=== PATIENT | female | born 1955 | race Caucasian/White ===

== ENCOUNTER 2018-07-12 21:50 | Emergency (ER) | payer BC ==
[2018-07-12] MEDS ORDERED: Sodium Chloride 0.9% 1,000 ML IV ONE (22:32)
--- NOTE | 2018-07-12 22:32 | EDM.PDOC ---
ED HPI GENERAL MEDICAL PROBLEM - General Chief Complaint: Fever Time Seen by Provider: 07/12/18 22:14 Source of Information: Reports: Patient, Significant Other History Limitations: Reports: No Limitations - History of Present Illness INITIAL COMMENTS - FREE TEXT/NARRATIVE: Patient presents with fever, chills and cough. She had a cough and sore throat that started a week ago and is on day 4 of a Z-pack. Today she had a colonoscopy in [place] and on the way home developed the fever and the cough is worse. Two days ago she was with her daughter who has Influenza A. Patient has asthma and easily gets exacerbations as well as pneumonia. Treatments MANAGER ACQUISITION: Reports: Acetaminophen - Related Data Allergies Allergy/AdvReac Type Severity Reaction Status Date / Time No Known Drug Allergies Allergy Cannot Verified 07/12/18 21:51 Remember Home Meds: Home Meds Albuterol/Ipratropium [Combivent Respimat] 07/12/18 [History] Budesonide/Formoterol [Symbicort 160-4.5 MCG] 1 inh INH DAILY 07/12/18 [History] Estrogens, Conjugated [Premarin] 07/12/18 [History] Fluticasone Furoate [Arnuity Ellipta] 1 puff INH ASDIRECTED 07/12/18 [History] Montelukast Sodium 1 tab PO BEDTIME 07/12/18 [History] Omeprazole 07/12/18 [History] Tiotropium [Spiriva HandiHaler] 1 puff INH BID 07/12/18 [History] Past Medical History Respiratory History: Reports: Asthma - Past Surgical History Female Surgical History: Reports: Hysterectomy Musculoskeletal Surgical History: Reports: Arthroscopic Knee, Shoulder Surgery Other Musculoskeletal Surgeries/Procedures:: back surgery Social & Family History - Tobacco Use Smoking Status *Q: Never Smoker - Recreational Drug Use Recreational Drug Use: No ED ROS GENERAL - Review of Systems Review Of Systems: See Below Constitutional: Reports: Fever, Chills. Denies: Decreased Appetite HEENT: Reports: Throat Pain. Denies: Ear Pain Respiratory: Reports: Cough, Sputum. Denies: Shortness of Breath, Wheezing Cardiovascular: Denies: Chest Pain, Lightheadedness, Syncope GI/Abdominal: Denies: Abdominal Pain, Diarrhea, Nausea, Vomiting : Denies: Dysuria, Flank Pain Musculoskeletal: Reports: No Symptoms Skin: Denies: Cyanosis, Jaundice, Mottled, Pallor, Diaphoresis Neurological: Denies: Confusion, Dizziness, Headache Psychiatric: Denies: Agitation, Anxiety ED EXAM, GENERAL - Physical Exam Exam: See Below Exam Limited By: No Limitations General Appearance: Alert, WD/WN, No Apparent Distress Eye Exam: Bilateral Eye: EOMI, Normal Inspection, PERRL Ears: Normal External Exam, Hearing Grossly Normal Nose: Normal Inspection, No Blood Throat/Mouth: Normal Inspection, Normal Lips, Normal Voice, No Airway Compromise Head: Atraumatic, Normocephalic Neck: Normal Inspection, Full Range of Motion Respiratory/Chest: No Respiratory Distress, Lungs Clear, No Accessory Muscle Use , Rhonchi (very mild, occasional). No: Crackles, Rales, Wheezing, Stridor Cardiovascular: No Murmur, Tachycardia (regular) GI/Abdominal: Normal Bowel Sounds, Soft, Non-Tender, No Organomegaly, No Distention, No Abnormal Bruit Back Exam: Normal Inspection, Full Range of Motion. No: CVA Tenderness (L), CVA Tenderness (R) Extremities: Normal Inspection Neurological: Alert, Oriented, Normal Cognition, No Motor/Sensory Deficits Psychiatric: Normal Affect, Normal Mood Skin Exam: Warm, Dry, Intact, No Rash. No: Normal Color (face is flushed) Course - Vital Signs Last Recorded V/S: Last Vital Signs Temp 100.4 F 07/12/18 23:15 Pulse 103 H 07/12/18 23:15 Resp 20 07/12/18 23:15 BP 109/51 L 07/12/18 23:15 Pulse Ox 96 07/12/18 23:15 - Orders/Labs/Meds Orders: Active Orders 24 hr Category Date Time Status Chest 2V [CR] Stat Exams 07/12/18 22:06 Taken Sodium Chloride 0.9% @ 999 MLS/HR (1000ml) Med 07/12/18 22:32 Ordered Sodium Chloride 0.9% [Normal Saline] 1,000 ml IV .BOLUS Medication Orders Sodium Chloride (Normal Saline) 1,000 mls @ 999 mls/hr IV .BOLUS ONE Stop: 07/12/18 23:32 Last Admin: 07/12/18 22:37 Dose: 999 mls/hr Labs: Laboratory Tests 07/12/18 07/12/18 07/12/18 Range/Units 22:09 22:20 22:20 WBC 6.88 (5.00-10.00) 10^3/uL RBC 4.17 (3.80-5.50) 10^6/uL Hgb 13.8 (12.0-16.0) g/dL Hct 39.3 (37.0-47.0) % MCV 94.2 H D (82.0-92.0) fL MCH 33.1 H (27.0-31.0) pg MCHC 35.1 (32.0-36.0) g/dL RDW 12.5 (11.5-14.5) % Plt Count 217 (150-400) 10^3/uL MPV 8.9 (7.4-10.4) fL Immature Gran % (Auto) 0.1 (0.0-5.0) % Neut % (Auto) 78.0 H (50.0-70.0) % Lymph % (Auto) 11.5 L (20.0-40.0) % [place] % (Auto) 9.6 H (2.0-8.0) % Eos % (Auto) 0.4 L (1.0-3.0) % Baso % (Auto) 0.4 (0.0-1.0) % Immature Gran # (Auto) 0.01 (0.00-0.50) 10^3/uL Neut # (Auto) 5.36 (2.50-7.00) 10^3/uL Lymph # (Auto) 0.79 L (1.00-4.00) 10^3/uL [place] # (Auto) 0.66 (0.10-0.80) 10^3/uL Eos # (Auto) 0.03 L (0.10-0.30) 10^3/uL Baso # (Auto) 0.03 (0.00-0.10) 10^3/uL Sodium 139 (136-145) mmol/L Potassium 3.1 L (3.3-5.3) mmol/L Chloride 102 (98-115) mmol/L Carbon Dioxide 24.1 (21.0-32.0) mmol/L Anion Gap 16.0 H (5-15) mmol/L BUN 6 (6-25) mg/dL Creatinine 0.71 (0.51-1.17) mg/dL Est Cr Clr Drug Dosing 76.91 mL/min Estimated GFR (MDRD) > 60 mL/min Glucose 116 H (75 - 99) mg/dL Lactic Acid (0.4-2.0) mmol/L Calcium 8.3 L (8.7-10.3) mg/dL Specimen Type . Urine Color Light yellow (YELLOW) Urine Appearance Clear (CLEAR) Urine pH 8.5 (5.0-9.0) Ur Specific [place] 1.020 (1.005-1.030) Urine Protein Negative (NEGATIVE) mg/dL Urine Glucose (UA) Negative (NEGATIVE) mg/dL Urine Ketones Negative (NEGATIVE) mg/dL Urine Occult Blood Negative (NEGATIVE) Urine Nitrite Negative (NEGATIVE) Urine Bilirubin Negative (NEGATIVE) Urine Urobilinogen 1.0 (0.2-1.0) E.U./dL Ur Leukocyte Esterase Negative (NEGATIVE) 07/12/18 Range/Units 22:20 WBC (5.00-10.00) 10^3/uL RBC (3.80-5.50) 10^6/uL Hgb (12.0-16.0) g/dL Hct (37.0-47.0) % MCV (82.0-92.0) fL MCH (27.0-31.0) pg MCHC (32.0-36.0) g/dL RDW (11.5-14.5) % Plt Count (150-400) 10^3/uL MPV (7.4-10.4) fL Immature Gran % (Auto) (0.0-5.0) % Neut % (Auto) (50.0-70.0) % Lymph % (Auto) (20.0-40.0) % [place] % (Auto) (2.0-8.0) % Eos % (Auto) (1.0-3.0) % Baso % (Auto) (0.0-1.0) % Immature Gran # (Auto) (0.00-0.50) 10^3/uL Neut # (Auto) (2.50-7.00) 10^3/uL Lymph # (Auto) (1.00-4.00) 10^3/uL [place] # (Auto) (0.10-0.80) 10^3/uL Eos # (Auto) (0.10-0.30) 10^3/uL Baso # (Auto) (0.00-0.10) 10^3/uL Sodium (136-145) mmol/L Potassium (3.3-5.3) mmol/L Chloride (98-115) mmol/L Carbon Dioxide (21.0-32.0) mmol/L Anion Gap (5-15) mmol/L BUN (6-25) mg/dL Creatinine (0.51-1.17) mg/dL Est Cr Clr Drug Dosing mL/min Estimated GFR (MDRD) mL/min Glucose (75 - 99) mg/dL Lactic Acid 2.6 H (0.4-2.0) mmol/L Calcium (8.7-10.3) mg/dL Specimen Type Urine Color (YELLOW) Urine Appearance (CLEAR) Urine pH (5.0-9.0) Ur Specific [place] (1.005-1.030) Urine Protein (NEGATIVE) mg/dL Urine Glucose (UA) (NEGATIVE) mg/dL Urine Ketones (NEGATIVE) mg/dL Urine Occult Blood (NEGATIVE) Urine Nitrite (NEGATIVE) Urine Bilirubin (NEGATIVE) Urine Urobilinogen (0.2-1.0) E.U./dL Ur Leukocyte Esterase (NEGATIVE) Meds: Medications Generic Name Dose Route Start Last Admin Trade Name Freq PRN Reason Stop Dose Admin Sodium Chloride 1,000 mls @ 999 mls/hr 07/12/18 22:32 07/12/18 22:37 Normal Saline IV 07/12/18 23:32 999 mls/hr .BOLUS ONE Administration - Re-Assessments/Exams Free Text/Narrative Re-Assessment/Exam: 07/12/18 23:06 CXR is clear. WBC 6.88 with 78% neutrophils. Lactic acid 2.6, otherwise labs normal. Influenza negative. IV fluids are running. Patient had Tylenol shortly before arrival. We will recheck HR and temp. 07/12/18 23:37 HR and temp improved nicely with fluids. She hadn't had anything to eat or drink in last 30 hours except for the bowel prep for her colonoscopy. I rechecked abdomen for any sign of peritoneal rigidity or tenderness considering the possibility of a perforation from her colonoscopy but looks okay. Patient is feeling much better and okay to go home. With the tachycardia, fever and elevated lactic acid, we will draw blood cultures prior to departure and patient agrees to return [facility] if begins to feel worse. Patient noticeably better and discharged to home in stable condition. Departure - Departure Time of Disposition: 23:29 Disposition: Home, Self-Care 01 Condition: Good Clinical Impression: Fever and chills, Tachycardia, Cough - Discharge Information Forms: ED Department Discharge Additional Instructions: 1. Drink 8 cups of water daily. 2. Finish your Z-pack as directed. 3. Follow up tomorrow in clinic if not steadily improving. 4. Recheck either in clinic or ER [facility] if worsening. - My Orders Last 24 Hours: My Active Orders 07/12/18 22:06 Chest 2V [CR] Stat 07/12/18 22:32 Sodium Chloride 0.9% @ 999 MLS/HR (1000ml) Sodium Chloride 0.9% [Normal Saline] 1,000 ml IV .BOLUS - Assessment/Plan Last 24 Hours: My Active Orders 07/12/18 22:06 Chest 2V [CR] Stat 07/12/18 22:32 Sodium Chloride 0.9% @ 999 MLS/HR (1000ml) Sodium Chloride 0.9% [Normal Saline] 1,000 ml IV .BOLUS
[2018-07-12 22:58] LABS: CHLORIDE,CL 102 mmol/L (98-115); SODIUM,NA 139 mmol/L (136-145)
--- NOTE | 2018-07-13 07:55 | CR ---
[id number] RAD/RAD Chest PA And Lateral EXAM: RAD Chest PA And Lateral CLINICAL DATA: COUGH COMPARISON: CORRELATION IS MADE WITH THE EXAM OF SEPTEMBER 29, 2017. FINDINGS: There is mild scarring at the lung bases. There is no pneumonia or edema. The cardiomediastinal contour is stable. IMPRESSION: STABLE CHEST. Linus Galdamez MD 07/13/18 0754 Thank you for allowing us to participate in the care of your patient.
== END 2018-07-12 23:55 | disposition home or self-care (01) ==
LOC: KA.ED 21:50
DX: R50.9 Fever, unspecified (principal); R00.0 Tachycardia, unspecified; R05 Cough; Z79.899 Other long term (current) drug therapy
CPT/HCPCS: 36415; 71046; 80048; 81003; 83605; 85025; 87040; 87804; 96360; 99283; J7030